=== PATIENT | female | born 1930 | race Hispanic/Latino ===

== ENCOUNTER → 2017-07-12 | Outpatient (CLI) | payer MEDICARE ==
[~2017-07-12] MED LIST: AMLO1CAP12 PO; LEVO500T89 PO; METF500T6 PO
[2017-07-12 15:22] LABS: CREATININE 0.8 mg/dL (0.5-1.5)
== END | disposition home or self-care (01) ==
LOC: LAB 14:08
PROVIDERS: ATTEND Urology
DX: D35.00 Benign neoplasm of unspecified adrenal gland (principal); D16.8 Benign neoplasm of pelvic bones, sacrum and coccyx
CPT/HCPCS: 36415; 82565; 84520

== ENCOUNTER → 2017-07-13 | Outpatient (CLI) | payer MEDICARE ==
[~2017-07-13] MED LIST changes: +IOPAMIDOL-370 75 ML VIAL IV ONE
== END | disposition home or self-care (01) ==
LOC: RAH 08:48
PROVIDERS: ATTEND Urology
DX: D35.00 Benign neoplasm of unspecified adrenal gland (principal); D16.8 Benign neoplasm of pelvic bones, sacrum and coccyx; K59.00 Constipation, unspecified; N26.1 Atrophy of kidney (terminal)
CPT/HCPCS: 74178; Q9967

== ENCOUNTER 2018-03-16 12:52 | Inpatient (IN) | payer MEDICARE ==
[~2018-03-16] VITALS: Ht 152.4 cm; Wt 52.2 kg
[~2018-03-16 12:52] MED LIST changes: -IOPAMIDOL-370 75 ML VIAL IV ONE; +METF-444 PO; -METF500T6 PO
[2018-03-16] MEDS ORDERED: CEFTRIAXONE SODIUM 1 GM ONE (17:02)
[2018-03-16] MEDS ORDERED: SODIUM CHLORIDE 0.9% 250 ML IV ONE (17:02)
[2018-03-16 17:03] LABS: BASOPHILS % (AUTO) 0.6 % (0.0-5.0); EOSINOPHILS % (AUTO) 0.2 % (0.0-8.0); HEMATOCRIT 39.2 % (36-48); MEAN CORPUSCULAR HEMOGLOBIN 29.6 pg (27.0-33.0); MEAN CORPUSCULAR HGB CONC 32.5 g/dL (32.0-36.0); MEAN CORPUSCULAR VOLUME 91.2 fL (79-99); MONOCYTES % (AUTO) 4.5 % (3.0-13.0); NEUTROPHILS % (AUTO) 85.7 % (40.0-77.0); PLATELET COUNT (AUTO) 181 K/uL (130-400); RED BLOOD CELL COUNT(AUTO) 4.29 MIL/uL (4.00-5.50); RED CELL DISTRIBUTION WIDTH 13.8 % (11.0-15.5); WHITE BLOOD COUNT (AUTO) 11.7 K/uL (4.8-10.8)
[2018-03-16 17:16] LABS: INR 0.89 (0.85-1.15); PARTIAL THROMBOPLASTIN TIME 23.5 SEC (26.3-35.5); PROTHROMBIN TIME 9.4 SEC (9.6-11.6)
[2018-03-16 17:19] LABS: CREATININE 0.7 mg/dL (0.5-1.5); POTASSIUM 4.1 mmol/L (3.5-5.1)
[2018-03-16] MEDS ORDERED: MORPHINE SULFATE 2 MG/ML 1ML SYG IVP PRN (17:30)
[2018-03-16] MEDS ORDERED: ACETAMINOPHEN 325 MG TAB PO PRN (17:30)
[2018-03-16] MEDS ORDERED: GLUCAGON 1MG KIT 1 MG ML IM PRN (17:30)
[2018-03-16] MEDS ORDERED: DEXTROSE 50%-WATER 50 ML DISP.SYRIN IV PRN (17:30)
[2018-03-16 17:33] LABS: CREATINE KINASE MB 2.2 ng/mL (0.5-3.6)
[2018-03-16 17:53] LABS: APPEARANCE,URINE Clear (CLEAR); BILIRUBIN,URINE Negative (NEGATIVE); COLOR,URINE Yellow (YELLOW); GLUCOSE, URINE (UA) 250 mg/dL (NEGATIVE); KETONES,URINE Negative (NEGATIVE); LEUKOCYTE ESTERASE ,URINE Trace (NEGATIVE); NITRATE,URINE Positive (NEGATIVE); OCCULT BLOOD,URINE Small (NEGATIVE); PROTEIN,URINE >=1000 (NEGATIVE)
[2018-03-16 17:57] VITALS: BP 182/77
[2018-03-16 18:06] LABS: BACTERIA,URINE Few /HPF (None Seen)
[2018-03-16 18:07] LABS: MUCUS,URINE Rare LPF (None Seen); SQUAMOUS EPITHELIAL CELL,UR Few /HPF (0-2)
[2018-03-16 20:14] VITALS: BP 158/77
[2018-03-16 20:16] VITALS: BP 158/77
[2018-03-16] MEDS: INSULIN R PO SS1 SQ SCH (21:00)
[2018-03-17] VITALS (7 sets, daily range): BP systolic 137–177; BP diastolic 66–76
[2018-03-17 00:57] LABS: CREATINE KINASE MB 1.8 ng/mL (0.5-3.6); CREATINE KINASE, TOTAL 65 U/L (21-232); MYOGLOBIN 60 ng/mL (10-92); TROPONIN I < 0.04 ng/mL (0.00-0.06)
[2018-03-17 04:27] LABS: HEMATOCRIT 32.5 % (36-48); MEAN CORPUSCULAR HEMOGLOBIN 30.1 pg (27.0-33.0); MEAN CORPUSCULAR HGB CONC 33.5 g/dL (32.0-36.0); PLATELET COUNT (AUTO) 160 K/uL (130-400); RED BLOOD CELL COUNT(AUTO) 3.62 MIL/uL (4.00-5.50); RED CELL DISTRIBUTION WIDTH 13.8 % (11.0-15.5); WHITE BLOOD COUNT (AUTO) 7.9 K/uL (4.8-10.8)
[2018-03-17 04:44] LABS: ALBUMIN 2.5 g/dL (3.5-5.0); BILIRUBIN,TOTAL 0.4 mg/dL (0.2-1.0); CREATININE 0.6 mg/dL (0.5-1.5); POTASSIUM 3.4 mmol/L (3.5-5.1); TOTAL PROTEIN, SERUM 5.5 g/dL (6.0-8.3)
[2018-03-17] MEDS: INSULIN R PO SS1 SQ SCH ×4 (06:02→20:47)
[2018-03-17 08:44] LABS: CREATINE KINASE MB 1.6 ng/mL (0.5-3.6); CREATINE KINASE, TOTAL 49 U/L (21-232); MYOGLOBIN 44 ng/mL (10-92); POTASSIUM 3.5 mmol/L (3.5-5.1); TROPONIN I < 0.04 ng/mL (0.00-0.06)
[2018-03-17] MEDS: HEPARIN SODIUM 5000UNIT/ML 1ML VIAL SQ SCH ×2 (09:00→20:56)
[2018-03-17] MEDS ORDERED: MAGNESIUM 2GM PREMIX 50ML 50 ML IV PRN (10:30)
[2018-03-17] MEDS ORDERED: POTASSIUM CHLORIDE 20MEQ/100ML 100 ML IV PRN (10:30)
[2018-03-17] MEDS ORDERED: POTASSIUM CHLORIDE 10% ELIXIR 20 MEQ/15 ML UDCUP PO PRN (10:30)
[2018-03-17] MEDS ORDERED: LIDOCAINE HCL-MPF 1% 2ML VIAL IVP PRN (10:30)
[2018-03-17] MEDS ORDERED: POTASSIUM CHLORIDE 20 MEQ ERTAB PO PRN (10:30)
[2018-03-17] MEDS: CEFTRIAXONE SODIUM 1 GM IVP SCH (17:16)
[2018-03-18 04:24] VITALS: BP 160/76
[2018-03-18] MEDS: INSULIN R PO SS1 SQ SCH ×4 (06:07→21:00)
[2018-03-18 07:30] VITALS: BP 157/74
[2018-03-18] MEDS: HEPARIN SODIUM 5000UNIT/ML 1ML VIAL SQ SCH ×2 (08:35→21:55)
[2018-03-18 11:40] VITALS: BP 141/59
[2018-03-18 16:00] VITALS: BP 165/84
[2018-03-18] MEDS: CEFTRIAXONE SODIUM 1 GM IVP SCH (16:18)
[2018-03-18 19:05] VITALS: BP 156/76
[2018-03-18 23:05] VITALS: BP 142/58
[2018-03-19 03:20] VITALS: BP 157/76
[2018-03-19] MEDS: INSULIN R PO SS1 SQ SCH ×4 (07:30→20:26)
[2018-03-19 07:44] VITALS: BP 148/77
[2018-03-19] MEDS: HEPARIN SODIUM 5000UNIT/ML 1ML VIAL SQ SCH ×2 (08:28→20:37)
[2018-03-19 11:40] VITALS: BP 152/75
[2018-03-19 16:18] VITALS: BP 151/82
[2018-03-19] MEDS: CEFTRIAXONE SODIUM 1 GM IVP SCH (16:52)
[2018-03-19 19:05] VITALS: BP 167/76
[2018-03-19 23:00] VITALS: BP 147/67
[2018-03-20] VITALS (24 sets, daily range): BP systolic 134–194; BP diastolic 54–79
[2018-03-20] MEDS ORDERED: SODIUM CHLORIDE 0.9% 1000ML 1,000 ML IV ONE ×2 (06:40→06:41)
[2018-03-20] MEDS ORDERED: DEXAMETHASONE SOD PHOSPHATE 10MG/ML 1ML VIAL ONE (06:45)
[2018-03-20] MEDS ORDERED: ONDANSETRON HCL 4 MG/2 ML VIAL ONE (06:45)
[2018-03-20] MEDS ORDERED: LIDOCAINE PF 2% 5ML ABBOJECT ONE (06:45)
[2018-03-20] MEDS ORDERED: NEOSTIGMINE 5MG/5ML SYR IV ONE (06:46)
[2018-03-20] MEDS ORDERED: PROPOFOL 10 MG/ML 20ML VIAL IV ONE (06:46)
[2018-03-20] MEDS ORDERED: ROCURONIUM 10MG/1ML SYR 10 MG/ML ML ONE (06:46)
[2018-03-20] MEDS ORDERED: MIDAZOLAM HCL 1 MG/ML 2ML VIAL ONE (06:46)
[2018-03-20] MEDS ORDERED: FENTANYL CITRATE PF 50 MCG/1 ML 2ML VIAL ONE ×2 (06:46→09:38)
[2018-03-20] MEDS ORDERED: ROPIVACAINE 0.5% 5MG/ML 30ML IJ ONE (06:50)
[2018-03-20] MEDS: CEFAZOLIN SODIUM 1 GM VIAL IVP PRN ×2 (06:59→07:40)
[2018-03-20] MEDS: INSULIN R PO SS1 SQ SCH ×4 (07:30→21:00)
[2018-03-20] MEDS ORDERED: EPHEDRINE SULFATE 50 MG/ML AMPULE ONE (07:55)
[2018-03-20] MEDS ORDERED: NOREPINEPHRINE BITARTRATE 1 MG/1 ML ML IV ONE (07:59)
[2018-03-20] MEDS ORDERED: GLYCOPYRROLATE 1 MG/5 ML SYRINGE ONE (07:59)
[2018-03-20] MEDS: HEPARIN SODIUM 5000UNIT/ML 1ML VIAL SQ SCH ×2 (09:00→20:17)
[2018-03-20] MEDS ORDERED: SODIUM CHLORIDE 0.9% 1000ML 1,000 ML IV SCH (10:05)
[2018-03-20] MEDS ORDERED: ONDANSETRON HCL 4 MG/2 ML VIAL IVP PRN (10:15)
[2018-03-20] MEDS ORDERED: FE FUMARATE/FA/MV, MIN COMB#15 1 TAB PO PRN (10:15)
[2018-03-20] MEDS ORDERED: LIDOCAINE HCL-MPF 1% 2ML VIAL IVP PRN (10:15)
[2018-03-20] MEDS ORDERED: POTASSIUM CHLORIDE 20 MEQ ERTAB PO PRN (10:15)
[2018-03-20] MEDS ORDERED: POTASSIUM CHLORIDE 10% ELIXIR 20 MEQ/15 ML UDCUP PO PRN (10:15)
[2018-03-20] MEDS ORDERED: CALCIUM CARBONATE 500 MG TABLET PO PRN (10:15)
[2018-03-20] MEDS ORDERED: POTASSIUM CHLORIDE 20MEQ/100ML 100 ML IV PRN (10:15)
[2018-03-20] MEDS ORDERED: DiphenhydrAMINE HCL 50 MG/ML VIAL IVP PRN (10:15)
[2018-03-20] MEDS: ACETAMINOPHEN EXTRA STRENGTH 500 MG TABLET PO SCH ×2 (10:15→18:16)
[2018-03-20] MEDS ORDERED: TRAMADOL HCL 50 MG TABLET PO PRN (12:00)
[2018-03-20] MEDS ORDERED: ACETAMINOPHEN-CODEINE 300/30MG TAB PO PRN (12:00)
[2018-03-20] MEDS: CEFTRIAXONE SODIUM 1 GM IVP SCH (17:19)
[2018-03-21 00:16] VITALS: BP 161/84
[2018-03-21] MEDS: ACETAMINOPHEN EXTRA STRENGTH 500 MG TABLET PO SCH ×3 (01:23→18:59)
[2018-03-21 04:20] VITALS: BP 162/81
[2018-03-21 04:33] LABS: HEMATOCRIT 29.8 % (36-48); MEAN CORPUSCULAR HEMOGLOBIN 30.2 pg (27.0-33.0); MEAN CORPUSCULAR HGB CONC 33.4 g/dL (32.0-36.0); MEAN CORPUSCULAR VOLUME 90.5 fL (79-99); PLATELET COUNT (AUTO) 183 K/uL (130-400); RED BLOOD CELL COUNT(AUTO) 3.29 MIL/uL (4.00-5.50); RED CELL DISTRIBUTION WIDTH 13.7 % (11.0-15.5); WHITE BLOOD COUNT (AUTO) 10.2 K/uL (4.8-10.8)
[2018-03-21 04:50] LABS: ALBUMIN 2.2 g/dL (3.5-5.0); BILIRUBIN,TOTAL 0.4 mg/dL (0.2-1.0); CREATININE 0.7 mg/dL (0.5-1.5); MAGNESIUM 1.6 mg/dL (1.80-2.40); POTASSIUM 3.6 mmol/L (3.5-5.1); TOTAL PROTEIN, SERUM 5.1 g/dL (6.0-8.3)
[2018-03-21] MEDS: INSULIN R PO SS1 SQ SCH ×4 (06:49→21:00)
[2018-03-21] MEDS ORDERED: KETOROLAC TROMETHAMINE 15MG/ML IV PRN (07:45)
[2018-03-21 08:04] VITALS: BP 163/89
[2018-03-21] MEDS: POLYETHYLENE GLYCOL 3350 17 GM POWD.PACK PO SCH (09:29)
[2018-03-21] MEDS: HEPARIN SODIUM 5000UNIT/ML 1ML VIAL SQ SCH ×2 (09:31→20:19)
[2018-03-21 10:56] VITALS: BP 162/81
[2018-03-21 16:23] VITALS: BP 193/98
[2018-03-21] MEDS: CEFTRIAXONE SODIUM 1 GM IVP SCH (17:19)
[2018-03-21 20:20] VITALS: BP 145/62
[2018-03-22 00:20] VITALS: BP 147/63
[2018-03-22] MEDS: ACETAMINOPHEN EXTRA STRENGTH 500 MG TABLET PO SCH (03:06)
[2018-03-22 04:00] VITALS: BP 145/61
[2018-03-22] MEDS: INSULIN R PO SS1 SQ SCH (06:32)
[2018-03-22 07:30] VITALS: BP 155/73
[2018-03-22] MEDS: POLYETHYLENE GLYCOL 3350 17 GM POWD.PACK PO SCH (08:15)
[2018-03-22] MEDS: HEPARIN SODIUM 5000UNIT/ML 1ML VIAL SQ SCH (08:20)
[2018-03-23] MEDS ORDERED: BISACODYL 10 MG SUPP.RECT RC PRN (10:15)
== END 2018-03-22 09:55 | disposition home or self-care (01) | DRG 483 ==
LOC: EDH 12:52 → OBSVTOIN 16:06 → EDHIP 16:06 → 4AH 17:24
PROVIDERS: ADMIT Internal Medicine Infectious Disease; ATTEND Internal Medicine Infectious Disease
PROC: 0RRJ00Z Replacement of Right Shoulder Joint with Reverse Ball and Socket Synthetic Substitute, Open Approach (ICD-10-PCS; principal; 2018-03-20 08:09)
DX: S42.241A 4-part fracture of surgical neck of right humerus, initial encounter for closed fracture (principal); N39.0 Urinary tract infection, site not specified; I50.22 Chronic systolic (congestive) heart failure; W01.0XXA Fall on same level from slipping, tripping and stumbling without subsequent striking against object, initial encounter; I44.7 Left bundle-branch block, unspecified; I11.0 Hypertensive heart disease with heart failure; E03.9 Hypothyroidism, unspecified; E11.9 Type 2 diabetes mellitus without complications; I25.10 Atherosclerotic heart disease of native coronary artery without angina pectoris; Y92.009 Unspecified place in unspecified non-institutional (private) residence as the place of occurrence of the external cause; Y99.8 Other external cause status; Z90.710 Acquired absence of both cervix and uterus; Z83.3 Family history of diabetes mellitus; Z88.7 Allergy status to serum and vaccine
CPT/HCPCS: 36415; 71045; 73060; 73200; 76000; 80048; 80053; 81001; 82550; 82553; 82948; 83735; 83874; 83880; 84132; 84484; 85025; 85027; 85610; 85730; 86850; 86900; 86901; 86922; 87088; 88304; 88311; 93005; 93306; A4218; J0690; J0696; J1100; J1644; J1815; J1885; J2001; J2250; J2405; J2704; J2710; J2795; J3010; J3490; J7030

== ENCOUNTER 2020-05-26 14:53 | Emergency (ER) | payer MEDICARE ==
[~2020-05-26 14:53] MED LIST changes: +AMLO-104 PO; -AMLO1CAP12 PO; -LEVO500T89 PO
[2020-05-26] MEDS ORDERED: ASPIRIN 325 MG TABLET ONE (15:36)
[2020-05-26] MEDS ORDERED: CLONIDINE HCL 0.2 MG TABLET PO ONE (15:37)
[2020-05-26 15:55] LABS: BASOPHILS % (AUTO) 0.8 % (0.0-5.0); EOSINOPHILS % (AUTO) 0.8 % (0.0-8.0); LYMPHOCYTES % (AUTO) 17.1 % (21.0-51.0); MEAN CORPUSCULAR HEMOGLOBIN 29.6 pg (27.0-33.0); MEAN CORPUSCULAR HGB CONC 32.4 g/dL (32.0-36.0); MEAN CORPUSCULAR VOLUME 91.4 fL (79-99); MONOCYTES % (AUTO) 6.1 % (3.0-13.0); NEUTROPHILS % (AUTO) 75.1 % (40.0-77.0); PLATELET COUNT (AUTO) 198 K/uL (130-400); RED BLOOD CELL COUNT(AUTO) 4.05 MIL/uL (4.00-5.50); RED CELL DISTRIBUTION WIDTH 13.4 % (11.0-15.5); WHITE BLOOD COUNT (AUTO) 7.7 K/uL (4.8-10.8)
[2020-05-26 16:11] LABS: CREATININE 0.8 mg/dL (0.5-1.5); POTASSIUM 4.2 mmol/L (3.5-5.1)
[2020-05-26 16:14] LABS: INR 0.94 (0.85-1.15); PARTIAL THROMBOPLASTIN TIME 23.1 SEC (26.3-35.5); PROTHROMBIN TIME 10.2 SEC (9.6-11.6)
[2020-05-26 16:16] LABS: ALBUMIN 3.6 g/dL (3.5-5.0); BILIRUBIN,TOTAL 0.4 mg/dL (0.2-1.0); TOTAL PROTEIN, SERUM 6.9 g/dL (6.0-8.3)
[2020-05-26 16:25] LABS: APPEARANCE,URINE CLOUDY (CLEAR); BILIRUBIN,URINE NEGATIVE (NEGATIVE); COLOR,URINE YELLOW (YELLOW); GLUCOSE, URINE (UA) NEGATIVE (NEGATIVE); KETONES,URINE NEGATIVE (NEGATIVE); LEUKOCYTE ESTERASE ,URINE SMALL (NEGATIVE); NITRATE,URINE NEGATIVE (NEGATIVE); OCCULT BLOOD,URINE NEGATIVE (NEGATIVE); PROTEIN,URINE NEGATIVE (NEGATIVE); UROBILINOGEN,URINE 0.2 mg/dL (0.2-1.0)
[2020-05-26 16:37] LABS: BACTERIA,URINE Moderate /HPF (None Seen); RBC,URINE 0-1 /HPF (0-1); SQUAMOUS EPITHELIAL CELL,UR Moderate /HPF (0-2)
[2020-05-26 16:38] LABS: MUCUS,URINE Rare LPF (None Seen)
[2020-05-26] MEDS ORDERED: LABETALOL 20 MG/4 ML DISP.SYRIN IV ONE (17:28)
== END 2020-05-26 19:36 | disposition home or self-care (01) ==
LOC: EDH 14:53
DX: I10 Essential (primary) hypertension (principal); E11.9 Type 2 diabetes mellitus without complications; R79.1 Abnormal coagulation profile; Z79.899 Other long term (current) drug therapy; Z98.890 Other specified postprocedural states
CPT/HCPCS: 36415; 71045; 80053; 81001; 82550; 84484; 85025; 85610; 85730; 87088; 93005; 96374

== ENCOUNTER → 2020-07-10 | Outpatient (CLI) | payer MEDICARE | END | disposition home or self-care (01) | LOC: SHCH 09:22 | PROVIDERS: ATTEND Internal Medicine Cardiovascular Disease | DX: I10 Essential (primary) hypertension (principal); I08.0 Rheumatic disorders of both mitral and aortic valves | CPT/HCPCS: 93306; 93356 ==